=== PATIENT | female | born 1955 | race Caucasian/White ===

== ENCOUNTER → 2025-06-12 | Outpatient (CLI) | payer MEDICARE, BC, SELFPAY ==
--- NOTE | 2025-06-12 14:37 | XR_ITS ---
EXAMINATION: Bilateral wrist 6 views TECHNIQUE: AP oblique lateral each wrist total 6 views Date and time: June 12, 2025, 1516 hours INDICATIONS: Bilateral wrist pain 5 years. FINDINGS: Significant osteopenia Mild to moderate diffuse narrowing radiocarpal intercarpal carpometacarpal joints No erosive arthritis No foreign bodies IMPRESSION: Mild to moderate diffuse narrowing radiocarpal intercarpal and carpometacarpal joints No erosive arthritis
--- NOTE | 2025-06-12 14:37 | XR_ITS ---
Examination: Bilateral hands, 6 views. Technique: AP, Oblique, Lateral each hand total 6 views Date and time of exam: June 12, 2025, 1509 hours INDICATIONS: Bilateral hand pain 5 years. 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
== END | disposition home or self-care (01) ==
LOC: CDIM 14:33
PROVIDERS: PCP Family Medicine; Referring Provider Nurse Practitioner Gerontology; Visit Provider Nurse Practitioner Gerontology
DX: M19.042 Primary osteoarthritis, left hand (principal); M19.041 Primary osteoarthritis, right hand; M18.0 Bilateral primary osteoarthritis of first carpometacarpal joints; M25.832 Other specified joint disorders, left wrist; M25.831 Other specified joint disorders, right wrist
CPT/HCPCS: 73110; 73130